=== PATIENT | male | born 1975 | race Caucasian/White ===

== ENCOUNTER 2017-10-20 15:37 | Emergency (ER) | payer OTHER ==
[~2017-10-20] VITALS: Ht 172.7 cm; Wt 87.0 kg
[2017-10-20 16:00] VITALS: BP 148/82; PULSE 105; RESP 16
[2017-10-20] MEDS ORDERED: SODIUM CHLOR 0.9% 1000 ML INJ 1,000 ML IV SCH (16:05)
[2017-10-20 16:15] VITALS: RESP 16; O2SAT 99
[2017-10-20] MEDS ORDERED: SODIUM CHLORIDE 0.9% FLUSH 10 ML FLUSH IV FLUSH PRN (16:15)
[2017-10-20] MEDS ORDERED: ONDANSETRON HCL 4 MG/2 ML VIAL IVP ONE (16:15)
--- NOTE | 2017-10-20 16:16 | PD ---
HPI Chief Complaint: GI Complaint Time Seen by Provider: 15:59 Travel History International Travel<30 days: No Contact w/Intl Traveler<30days: No Traveled to known affect area: No History of Present Illness HPI 42-year-old male complains of nausea vomiting diarrhea. Patient states that symptoms started last night. Patient denies any headache. Patient denies any chest pain or shortness of breath. Patient denies any coughing congestion. Patient denies any fever chills. Patient denies any blood or mucus in the stool. Patient states the family members with same GI symptoms. PFSH Past Medical History Hx Anticoagulant Therapy: No Cardiovascular Problems: Yes (HTN, CHOL) Diabetes: No Social History Tobacco Use: No Allergies-Medications (Allergen,Severity, Reaction): Coded Allergies: No Known Allergies (Unverified , 10/20/17) Reported Meds & Prescriptions Reported Meds & Active Scripts Active Lomotil (Diphenoxylate-Atropine) 2.5-0.025 Mg Tab 1 Tab PO Q6H PRN Zofran Odt (Ondansetron Odt) 4 Mg Tab 4 Mg SL Q6HR PRN Reported Cialis (Tadalafil) Unknown Strength Tab Unknown Dose PO DAILY PRN Do not exceed 1 dose/day. Fenofibrate Unknown Strength Tab Unknown Dose PO DAILY Flomax (Tamsulosin HCl) 0.4 Mg Cap 0.4 Mg PO HS Saphris (Asenapine) Unknown Strength Subl Unknown Dose PO HS Topamax (Topiramate) 25 Mg Tab 25 Mg PO DAILY Amlodipine (Amlodipine Besylate) Unknown Strength Tab Unknown Dose PO DAILY Lamictal (Lamotrigine) 200 Mg Tab 200 Mg PO BID Wellbutrin Xl 24 HR (Bupropion HCl) Unknown Strength Tab Unknown Dose PO DAILY Review of Systems General / Constitutional: No: Fever Eyes: No: Visual changes HENT: No: Headaches Cardiovascular: No: Chest Pain or Discomfort Respiratory: No: Shortness of Breath Gastrointestinal: Positive: Nausea, Vomiting, Diarrhea, No: Abdominal Pain Genitourinary: No: Dysuria Musculoskeletal: No: Pain Skin: No Rash Neurologic: No: Weakness Psychiatric: No: Depression Endocrine: No: Polydipsia Hematologic/Lymphatic: No: Easy Bruising Physical Exam Narrative GENERAL: Well-nourished, well-developed patient. SKIN: Focused skin assessment warm/dry. HEAD: Normocephalic. EYES: No scleral icterus. No injection or drainage. NECK: Supple, trachea midline. No JVD or lymphadenopathy. CARDIOVASCULAR: Regular rate and rhythm without murmurs, gallops, or rubs. RESPIRATORY: Breath sounds equal bilaterally. No accessory muscle use. GASTROINTESTINAL: Abdomen soft, non-tender, nondistended. MUSCULOSKELETAL: No cyanosis, or edema. BACK: Nontender without obvious deformity. No CVA tenderness. Neurologic exam normal. Data Data Last Documented VS Vital Signs Date Time Temp Pulse Resp B/P (MAP) Pulse Ox O2 Delivery O2 Flow Rate FiO2 10/20/17 18:46 10/20/17 18:12 16 10/20/17 17:05 97 98 Room Air Orders Orders Complete Blood Count With Diff (10/20/17 16:05) Comprehensive Metabolic Panel (10/20/17 16:05) Lipase (10/20/17 16:05) Iv Access Insert/Monitor (10/20/17 16:05) Ecg Monitoring (10/20/17 16:05) Oximetry (10/20/17 16:05) Ondansetron Inj (Zofran Inj) (10/20/17 16:15) Sodium Chlor 0.9% 1000 Ml Inj (Ns 1000 M (10/20/17 16:05) Sodium Chloride 0.9% Flush (Ns Flush) (10/20/17 16:15) Diphenoxylate/Atropine Tab (Lomotil Tab) (10/20/17 16:30) Ed Discharge Order (10/20/17 18:26) Labs Laboratory Tests Test 10/20/17 16:30 White Blood Count 11.7 TH/MM3 Red Blood Count 4.64 MIL/MM3 Hemoglobin 13.5 GM/DL Hematocrit 41.9 % Mean Corpuscular Volume 90.4 FL Mean Corpuscular Hemoglobin 29.2 PG Mean Corpuscular Hemoglobin Concent 32.3 % Red Cell Distribution Width 12.0 % Platelet Count 354 TH/MM3 Mean Platelet Volume 7.3 FL Neutrophils (%) (Auto) 89.3 % Lymphocytes (%) (Auto) 4.4 % Monocytes (%) (Auto) 2.9 % Eosinophils (%) (Auto) 3.0 % Basophils (%) (Auto) 0.4 % Neutrophils # (Auto) 10.5 TH/MM3 Lymphocytes # (Auto) 0.5 TH/MM3 Monocytes # (Auto) 0.3 TH/MM3 Eosinophils # (Auto) 0.4 TH/MM3 Basophils # (Auto) 0.0 TH/MM3 CBC Comment DIFF FINAL Differential Comment Blood Urea Nitrogen 25 MG/DL Creatinine 1.20 MG/DL Random Glucose 102 MG/DL Total Protein 8.0 GM/DL Albumin 4.4 GM/DL Calcium Level 8.6 MG/DL Alkaline Phosphatase 53 U/L Aspartate Amino Transf (AST/SGOT) 29 U/L Alanine Aminotransferase (ALT/SGPT) 45 U/L Total Bilirubin 0.5 MG/DL Sodium Level 136 MEQ/L Potassium Level 3.5 MEQ/L Chloride Level 104 MEQ/L Carbon Dioxide Level 25.4 MEQ/L Anion Gap 7 MEQ/L Estimat Glomerular Filtration Rate 66 ML/MIN Lipase 147 U/L MDM Medical Decision Making Medical Screen Exam Complete: Yes Emergency Medical Condition: Yes Interpretation(s) CBC WBC 11.7. 89 neutrophil. BUN 25. GFR 66. Differential Diagnosis Differential diagnosis including gastroenteritis, dehydration, electrolyte imbalance, colitis. Narrative Course 42-year-old male with nausea vomiting diarrhea since last night. Normal saline solution 1 L IV bolus. Zofran 4 mg IV. Lomotil one tablet by mouth given. Diagnosis Primary Impression: Gastroenteritis Additional Impression: Dehydration Patient Instructions: General Instructions Additional Instructions: Resume regular diet. Take medication as needed. Follow-up with personal physician. Return if persistent problem or worse. Med/Other Pt SpecificInfo: Prescription(s) given Scripts Diphenoxylate-Atropine (Lomotil) 2.5-0.025 Mg Tab 1 TAB PO Q6H Y for DIARRHEA, #10 TAB 0 Refills Prov: Les Reilly MD 10/20/17 Ondansetron Odt (Zofran Odt) 4 Mg Tab 4 MG SL Q6HR Y for Nausea/Vomiting, #10 TAB 0 Refills Prov: Les Reilly MD 10/20/17 Disposition: 01 DISCHARGE HOME Condition: Stable Les Reilly MD Oct 20, 2017 16:16
[2017-10-20] MEDS ORDERED: DIPHENOXYLATE/ATROPINE 2.5 MG/0.025 MG TAB PO ONE (16:30)
[2017-10-20 16:57] LABS: AUTOMATED NEUTROPHIL # 10.5 TH/MM3 (1.8-7.7); BASOPHIL % 0.4 % (0.0-2.0); EOSINOPHIL # 0.4 TH/MM3 (0-0.4); HEMATOCRIT 41.9 % (39.0-51.0); HEMOGLOBIN 13.5 GM/DL (13.0-17.0); LYMPH % 4.4 % (9.0-44.0); LYMPHOCYTE # 0.5 TH/MM3 (1.0-4.8); MEAN CELL VOLUME 90.4 FL (80.0-100.0); MEAN CORPUSCULAR HEMOGLOBIN 29.2 PG (27.0-34.0); MEAN CORPUSCULAR HGB CONC 32.3 % (32.0-36.0); MEAN PLATELET VOLUME 7.3 FL (7.0-11.0); MONO % 2.9 % (0.0-8.0); MONOCYTE # 0.3 TH/MM3 (0-0.9); NEUT % 89.3 % (16.0-70.0); PLATELET COUNT 354 TH/MM3 (150-450); RED BLOOD COUNT 4.64 MIL/MM3 (4.50-5.90); WHITE BLOOD COUNT 11.7 TH/MM3 (4.0-11.0)
[2017-10-20 17:05] VITALS: BP 131/69; PULSE 97; RESP 16; O2SAT 98
[2017-10-20 17:08] LABS: CHLORIDE 104 MEQ/L (98-107); SODIUM (NA) 136 MEQ/L (136-145)
[2017-10-20 17:13] LABS: ALBUMIN 4.4 GM/DL (3.4-5.0); BICARBONATE 25.4 MEQ/L (21.0-32.0); BLOOD UREA NITROGEN 25 MG/DL (7-18); CALCIUM 8.6 MG/DL (8.5-10.1); GLUCOSE,RANDOM 102 MG/DL (74-106); LIPASE 147 U/L (73-393)
[2017-10-20 17:16] LABS: ALT (GPT) 45 U/L (12-78); AST (GOT) 29 U/L (15-37); GLOMERULAR FILTRATION RATE 66 ML/MIN (>89)
[2017-10-20 17:17] LABS: TOTAL BILIRUBIN ADULT 0.5 MG/DL (0.2-1.0)
[2017-10-20 17:19] LABS: ALKALINE PHOSPHATASE 53 U/L (45-117)
[2017-10-20] MEDS ORDERED: LAMI200T PO (17:59)
[2017-10-20] MEDS ORDERED: BUPR150XL PO (17:59)
[2017-10-20] MEDS ORDERED: AMLO2.5T PO (18:01)
[2017-10-20] MEDS ORDERED: SAPH5SUB3 PO (18:01)
[2017-10-20] MEDS ORDERED: TOPI25 PO (18:01)
[2017-10-20] MEDS ORDERED: TAMS5CAP PO (18:02)
[2017-10-20] MEDS ORDERED: FENO1TAB46 PO (18:05)
[2017-10-20] MEDS ORDERED: CIAL2.5T PO (18:05)
[2017-10-20] MEDS ORDERED: LOMO2.5T PO (18:27)
[2017-10-20] MEDS ORDERED: ZOFR4TAB3 SL (18:27)
== END 2017-10-20 19:00 | disposition home or self-care (01) ==
LOC: MERGE 15:37 → PHED 15:37
DX: K52.9 Noninfective gastroenteritis and colitis, unspecified (principal); E86.0 Dehydration; I10 Essential (primary) hypertension
CPT/HCPCS: 80053; 83690; 85025; 96361; 96374; 99284; J2405; J7030